=== PATIENT | female | born 1950 | race Two or more races ===

== ENCOUNTER → 2020-08-23 | Outpatient (CLI) | payer MEDICARE, OTHER ==
--- NOTE | 2020-08-23 12:33 | KCIC ---
EXAM: Bilateral knees, 4 views. HISTORY: Pain. COMPARISON: None. FINDINGS: Right knee: There is mild medial and patellofemoral compartment joint space narrowing, spurring and s ubchondral sclerosis. There is a small right knee effusion. There is bone demineralization. There is no fracture, dislocation or subluxation. Left knee: 4 views of the left knee are obtained. There is moderate medial and patellofemoral compart ment joint space narrowing, subchondral sclerosis and spurring. There is a trace left knee effusion. There is no fracture, dislocation or subluxation. There is bone demineralization. IMPRESSION: 1. [id number] left greater than right medial compartment predominant osteoarthritis of both kne es with small right and trace left knee effusions. 2. No acute osseous finding. Electronically signed by: Hermelinda Roche MD (08/23/2020 12:31 PM) [id number]
== END ==
LOC: KCIC 10:40
PROVIDERS: ATTEND Nurse Practitioner Family
DX: M17.0 Bilateral primary osteoarthritis of knee (principal)

== ENCOUNTER → 2020-11-17 | Outpatient (CLI) | payer MEDICARE, OTHER ==
--- NOTE | 2020-11-17 15:24 | KCIC ---
INDICATION: Screening for osteopenia/osteoporosis. Postmenopausal evaluation COMPARISON: 09/18/2018 TECHNIQUE: Bone densitometry was performed through the lumbar spine and proximal femur. IMPRESSION: Lumbar Spine: BMD: 0.68 T-Score: -3.3 Range: Osteoporotic. T score was -3.4 on prior exam Proximal Femur: BMD: 0.77 T-Score: -1.4 Range: Osteoporotic. T score was -2.4 on prior exam. World [employer] Organization Criteria for Bone Density: T-Score: > -1.0: Normal Range < -1.0 to -2.5: Osteopenic Range < -2.5: Osteoporotic Range Electronically signed by: Quincy Neal MD (11/17/2020 3:21 PM) [id number]
== END ==
LOC: KCIC DEXA 10:50
PROVIDERS: ATTEND Nurse Practitioner Family
DX: M81.0 Age-related osteoporosis without current pathological fracture (principal); Z78.0 Asymptomatic menopausal state
CPT/HCPCS: 77080